=== PATIENT | female | born 1980 | race Caucasian/White ===

== ENCOUNTER 2017-10-27 12:44 | Emergency (ER) | END 2017-10-27 15:49 | disposition home or self-care (01) ==

== ENCOUNTER 2018-02-22 12:59 | Outpatient (CLI) | END 2018-02-22 17:02 | disposition home or self-care (01) ==

== ENCOUNTER 2018-02-23 16:06 | Outpatient (CLI) | END 2018-02-23 18:50 | disposition home or self-care (01) ==

== ENCOUNTER 2018-03-13 19:45 | Inpatient (IN) | END 2018-04-11 14:29 | disposition home or self-care (01) | DRG 832 ==

== ENCOUNTER 2018-04-13 14:25 | Outpatient (CLI) | END 2018-04-13 16:30 | disposition home or self-care (01) ==

== ENCOUNTER 2018-04-19 10:19 | Outpatient (CLI) | END 2018-04-19 12:12 | disposition home or self-care (01) ==

== ENCOUNTER 2018-04-29 16:35 | Outpatient (CLI) | END 2018-04-29 18:35 | disposition home or self-care (01) ==

== ENCOUNTER 2018-05-04 16:25 | Outpatient (CLI) | END 2018-05-04 18:07 | disposition home or self-care (01) ==

== ENCOUNTER 2018-05-20 16:28 | Inpatient (IN) | payer OTHER ==
[~2018-05-20] VITALS: Ht 175.3 cm; Wt 77.6 kg
[~2018-05-20 16:28] MED LIST: LABE100T7 PO; PROG200C15 VAG; SERT25TA PO
[2018-05-20 18:18] VITALS: BP 117/79; PULSE 77; RESP 18
--- NOTE | 2018-05-20 20:42 | HP ---
Date/Time of Note Date/Time of Note DATE: 05/20/18 TIME: 20:31 OB - History Hx of Present Free Text/Dictation 38 years old female 1 para 0 with an EDC of 06/06/2018 at 37.4 weeks the patient had a history of chronic hypertension on lisinopril. She had an early care and she actually had been hospitalized before for hypertension, short cervix and possible IUGR early at 28 weeks of her . she had been kept in the hospital until 34 weeks she had at that time magnesium sulfate and steroids for prevention of premature labor. At this time she presents with mild superimposed preeclampsia no active labor and no changes in her cervical exam. Dr. Martinez had seen her today for evaluation and for BPP NST and she had advise her to be admitted for observation for PIH and induction of labor later on During her she has been managed on labetalol alone. She also has been on Zoloft 25 mg daily Chief Complaint: No headaches dizziness or epigastric pain Estimated Due Date: Jun 06, 2018 : 1 Care: Good Care Obstetrical Complications: Pre-eclampsia, Gestational Hypertension Past Family/Social History * Past Medical, Surgical, Family and Obstetric Histories reviewed from chart. Blood Type: B+ Rubella: immune RPR/VDRL: Negative GBS Status: Negative HBsAG: Negative OB Admission Exam Physical Exam HEENT: WNL Heart: Rhythm Normal Lungs: Clear, Equal Abdomen: WNL Extremities: Normal Reflexes: Normal Cervical Dilatation: 2cm Effacement: 25% Station: -2 Membranes: Intact Heart Rate: 120's Accelerations: Accelerations Present Decelerations: No Decelerations Varibility: Moderate Contractions on Admission: None ZOHAIB FRAZIER MD May 20, 2018 20:42
[2018-05-20] MEDS ORDERED: SERTRALINE 50 MG TAB PO SCH (21:00)
[2018-05-20] MEDS ORDERED: LABETALOL 100 MG TAB PO ONE (21:00)
[2018-05-20] MEDS: SERTRALINE 50 MG TAB PO SCH (22:30)
[2018-05-20] MEDS: FAMOTIDINE 20 MG TAB PO SCH (22:31)
[2018-05-21] MEDS ORDERED: LABETALOL 100 MG TAB PO SCH (09:00)
[2018-05-21] MEDS ORDERED: PRENATAL VITAMIN PO SCH (09:00)
[2018-05-21] MEDS: FAMOTIDINE 20 MG TAB PO SCH ×2 (09:04→21:35)
[2018-05-21] MEDS ORDERED: BUTORPHANOL 2 MG INJ IV PRN (10:30)
[2018-05-21] MEDS ORDERED: IBUPROFEN 600 MG TAB PO PRN (10:30)
[2018-05-21] MEDS ORDERED: MISOPROSTOL 200 MCG TAB PR PRN (10:30)
[2018-05-21] MEDS ORDERED: OXYTOCIN 30 UNITS/LR 500 ML IV PRN (10:30)
[2018-05-21] MEDS ORDERED: OXYTOCIN 30 UNITS/LR 500 ML IV SCH ×2 (10:30)
[2018-05-21] MEDS ORDERED: CARBOPROST 250 MCG INJ IM PRN (10:30)
[2018-05-21] MEDS ORDERED: METHYLERGONOVINE 0.2 MG INJ IM PRN (10:30)
[2018-05-21] MEDS ORDERED: AMPICILLIN 2 GM/NS (PMX) 100 ML IV ONE (10:30)
[2018-05-21] MEDS ORDERED: BUTORPHANOL 1 MG INJ IV PRN (10:30)
[2018-05-21] MEDS: LACTATED RINGER'S 1,000 ML IV SCH ×2 (12:20→19:56)
[2018-05-21] MEDS: MISOPROSTOL 50 MCG CAPSULE PO PRN ×3 (12:34→21:35)
[2018-05-21] MEDS ORDERED: AMPICILLIN 1 GM/NS (PMX) 50 ML IV SCH (14:30)
[2018-05-21] MEDS: SERTRALINE 50 MG TAB PO SCH (21:36)
[2018-05-22] MEDS: MISOPROSTOL 50 MCG CAPSULE PO PRN (02:35)
[2018-05-22] MEDS: LACTATED RINGER'S 1,000 ML IV SCH ×3 (04:09→13:54)
--- NOTE | 2018-05-22 04:54 | PREAC ---
Date/Time of Note Date/Time of Note DATE: 05/22/18 TIME: 04:53 Anesthesia Eval and Record Evaluation Time Pre-Procedure Interview DATE: 05/22/18 TIME: 04:53 Age 38 Sex female NPO: 8 hrs Preoperative diagnosis iup at 37 weeks Planned procedure labor epidural Past Medical History Past Medical History: None Surgery & Anesthesia Issues No known issue Meds Anticoagulation: No Beta Romy within 24 hr: No Reason Beta Romy not given: Pt. not on B-Romy Reported Medications Sertraline Hcl* (Zoloft*) 25 Mg Tablet, 25 MG PO DAILY, #30 TAB 03/13/18 Progesterone,Micronized* (Prometrium*) 200 Mg Capsule, 200 MG VAG HS, CAP 03/13/18 Labetalol Hcl* (Labetalol Hcl*) 100 Mg Tablet, 100 MG PO BID, TAB 02/22/18 Current Medications Prenat Multivit/ [place]/Iron/Folic Ac () 1 tab DAILY PO Last administered on 05/21/18at 09:04; Admin Dose 1 TAB; Start 05/21/18 at 09:00 Sertraline HCl (Zoloft) 25 mg HS PO Last administered on 05/21/18at 21:36; Admin Dose 25 MG; Start 05/20/18 at 21:00 Famotidine (Pepcid) 20 mg BID PO Last administered on 05/21/18at 21:35; Admin Dose 20 MG; Start 05/20/18 at 21:00 Lactated Ringer's 1,000 ml @ 125 mls/hr Q8H IV Last administered on 05/22/18at 04:09; Admin Dose 125 MLS/HR; Start 05/21/18 at 10:04 Butorphanol Tartrate (Stadol) 1 mg Q2H PRN IV PAIN; Start 05/21/18 at 10:30 Butorphanol Tartrate (Stadol) 2 mg Q2H PRN IV PAIN; Start 05/21/18 at 10:30 Oxytocin/Lactated Ringer's 500 ml @ 500 mls/hr ONCE POST IV ; Start 05/21/18 at 10:30 Oxytocin/Lactated Ringer's 500 ml @ 125 mls/hr POST IV ; Start 05/21/18 at 10:30 Ibuprofen (Motrin) 600 mg ONCE PRN PO PAIN LEVEL 1-5; Start 05/21/18 at 10:30 Oxytocin/Lactated Ringer's 500 ml @ 0 mls/hr ONCE PRN IV VAGINAL BLEEDING; Start 05/21/18 at 10:30 Methylergonovine Maleate (Methergine) 0.2 mg ONCE PRN IM VAGINAL BLEEDING; Start 05/21/18 at 10:30 Carboprost Tromethamine (Hemabate) 250 mcg ONCE PRN IM VAGINAL BLEEDING; Start 05/21/18 at 10:30 Misoprostol (Cytotec) 1,000 mcg ONCE PRN CO VAGINAL BLEEDING; Start 05/21/18 at 10:30 Misoprostol (Cytotec 50 Mcg Capsule) 50 mcg Q4 PRN PO LABOR INDUCTION Last administered on 05/22/18at 02:35; Admin Dose 50 MCG; Start 05/21/18 at 11:00 Labetalol HCl (Normodyne) 100 mg BID PO ; Start 05/22/18 at 09:00 Meds reviewed: Yes Allergies Coded Allergies: codeine (Verified Allergy, Intermediate, HIVES, 02/23/18) diphenhydramine (Verified Allergy, Intermediate, ANXIETY, 02/23/18) lisinopril (Verified Allergy, Unknown, Swollen face, 05/20/18) Allergies Reviewed: Yes Labs/Studies Labs Reviewed: Reviewed by anesthesiologist Result Diagram: 05/20/18202505/20/182025 test: Positive Pre-procedure Exam Last vitals Vital Signs Date Temp Pulse Resp B/P (MAP) Pulse Ox O2 O2 Flow FiO2 Time Delivery Rate 05/20/18 98.1 77 18 117/79 Room Air 18:18 (92) Airway: Adequate mouth opening, Adequate thyromental dist Mallampati: Mallampati I Teeth: Normal Lung: Normal Heart: Normal ASA Physical Status ASA physical status: 2 Emergency: None Planned Anesthetic Neuraxial: Epidural Planned Pain Management Parenteral pain med Pre-operative Attestations Prior to commencing anesthesia and surgery, the patient was re-evaluated, there was verification of: *The patient's identity *The results of appropriate recent lab work and preoperative vital signs *The above evaluation not changing prior to induction *Anesthetic plan, risk benefits, alternative and complications discussed with p atient/family; questions answered; patient/family understands, accepts and wishes to proceed. RILEY SOLARES May 22, 2018 04:54
[2018-05-22] MEDS ORDERED: FENTAnyl 2MCG/ML-ROPIV 0.2% 100 ML ONE (04:56)
[2018-05-22] MEDS ORDERED: ONDANSETRON 4 MG INJ IV PRN ×3 (05:00→20:00)
[2018-05-22] MEDS ORDERED: FENTAnyl 2MCG/ML-ROPIV 0.2% 100 ML BAG EPI SCH (05:00)
[2018-05-22] MEDS ORDERED: NALOXONE (0.4 MG/ML) INJ IV PRN ×2 (05:00→20:00)
[2018-05-22] MEDS ORDERED: morphine SULFATE/PF (10 MG/10 ML) INJ ONE (07:00)
[2018-05-22] MEDS ORDERED: LABETALOL 100 MG TAB PO SCH (09:00)
[2018-05-22] MEDS ORDERED: OXYTOCIN 30 UNITS/LR 500 ML IV SCH (11:00)
[2018-05-22] MEDS ORDERED: LACTATED RINGER'S 500 ML IV SCH (13:39)
[2018-05-22] MEDS ORDERED: CEFAZOLIN 2 GM/50 ML (PMX) 50 ML IVPB SCH (14:00)
[2018-05-22] MEDS ORDERED: OXYTOCIN 30 UNITS/LR 500 ML IV PRN ×2 (14:00→14:30)
[2018-05-22] MEDS ORDERED: MISOPROSTOL 200 MCG TAB PR PRN ×2 (14:00→14:30)
[2018-05-22] MEDS ORDERED: CARBOPROST 250 MCG INJ IM PRN ×2 (14:00→14:30)
[2018-05-22] MEDS ORDERED: METHYLERGONOVINE 0.2 MG INJ IM PRN ×2 (14:00→14:30)
[2018-05-22] MEDS ORDERED: LACTATED RINGER'S 1,000 ML IV SCH (14:12)
--- NOTE | 2018-05-22 14:23 | QN ---
Documentation Comment The patient has been induced for chronic hypertension and superimposed PIH. She has been having contractions every 2-3 minutes on Cytotec and she had reached 1 cm dilation 80% effacement -2 station cephalic presentation. She started having nonreassuring heart tones with poor djzw-pc-njch variability and prolonged variable decelerations for which a section was proposed Patient was explained about the procedure the alternatives and options and she agreed to go ahead with the procedure with full understanding and no more questions ZOHAIB FRAZIER MD May 22, 2018 14:23
[2018-05-22] MEDS ORDERED: NA PHOSPHATE/BIPHOS 133 ML ENEMA PR PRN (14:30)
[2018-05-22] MEDS ORDERED: hydrOXYzine HCL 25 MG TAB PO ONE (14:30)
[2018-05-22] MEDS ORDERED: LANOLIN HPA 1 PKT TOP PRN (14:30)
[2018-05-22] MEDS ORDERED: METHYLERGONOVINE 0.2 MG TAB PO PRN (14:30)
[2018-05-22] MEDS ORDERED: CHLOROPROCAINE 3% (MPF) 20 ML INJ ONE (15:27)
--- NOTE | 2018-05-22 15:31 | SIPON ---
Date/Time of Note Date/Time of Note DATE: 05/22/18 TIME: 15:27 Operative Report Preoperative Diagnosis 37.6 weeks Chronic hypertension PIH Nonreassuring heart tones with variable decelerations Postoperative Diagnosis Same Operation/Procedure Performed Primary low segment transverse section Surgeon see signature line contact center assistant DR Nhan Lee Anesthesia: spinal Estimated blood loss: other Transfusion Required none Specimen Placenta Grafts/Implants none Complications none ZOHAIB FRAZIER MD May 22, 2018 15:31
--- NOTE | 2018-05-22 15:41 | PREOPHP ---
DATE OF ADMISSION: 05/20/2018 HISTORY OF PRESENT ILLNESS: This is a 38-year-old female, 1, para 0 with an EDC of 9. The patient is a 37.4 weeks of with a history of chronic hypertension on lisinopril the n [facility]. The patient was admitted in the [facility] at 27 weeks of due to a short cervix and she was kept in the hospital until about 34 week s. At this time, she is 37 weeks and 4 days and by the advice of the perinatologist, we admitted her for induction of labor due to chronic hypertension with superimposed -induced hypertension. The patient had also been on Zoloft due to some depression and at this time, she was induced and di latation was reached to 1 cm, 80% effaced,-2 station with membranes intact, but variable deceleration s that were prolonged were showing up with 40 xzak-ta-vhgj variability, for which a primary section was advised. PAST MEDICAL HISTORY: Chronic hypertension. Otherwise, she had healthy past history with no surgeri es and no history of medical antecedents except for the hypertension. FAMILY HISTORY: Also noncontributory except for hypertension. PHYSICAL EXAMINATION: VITAL SIGNS: Stable with blood pressure of 125/85, pulse is 80, respirations 16. HEAD AND NECK: Normal. CHEST: Clear. HEART: Normal sinus rhythm. LUNGS: Clear. BREASTS: Soft, nontender. No masses. ABDOMEN: Soft, nontender. No masses. Uterus with intermittent contractions. PELVIC: With 1 to 2 cm, 80% effacement, -2 station, membranes intact. EXTREMITIES: Normal with normal pulses with 2 to 3+ reflexes. No edema. NEUROLOGIC: The patient has no headaches or dizziness. At this time, she is being advised for a primary section due to nonreassuring heart to hortencia, with variable decelerations and poor xkxo-wz-byyi variability and -induced hypertension . She has been advised of the possible risks and possible complications of the procedure with her al ternatives and options. Written information was provided. She had no more questions and agreed to h ave the section at this time with full understanding of what is happening. Dictated By: ZOHAIB ALVA/WAYNE Conf#: [id number] [facility]#: [id number]
[2018-05-22] MEDS ORDERED: ACETAMINOPHEN 500 MG TAB PO PRN (16:00)
[2018-05-22] MEDS ORDERED: FENTAnyl 50 MCG/ML VIAL ONE ×3 (16:05→16:23)
--- NOTE | 2018-05-22 16:53 | PAC ---
Date/Time of Note Date/Time of Note DATE: 05/22/18 TIME: 16:52 Post-Anesthesia Notes Post-Anesthesia Note Last documented vital signs Vital Signs Date Temp Pulse Resp B/P (MAP) Pulse Ox O2 O2 Flow FiO2 Time Delivery Rate 05/20/18 98.1 77 18 117/79 Room Air 18:18 (92) Activity: WNL Respiratory function: WNL Cardiovascular function: WNL Mental status: Baseline Pain reasonably controlled: Yes Hydration appropriate: Yes Nausea/Vomiting absent: Yes JARRED CA May 22, 2018 16:52
[2018-05-22] MEDS: KETOROLAC 30 MG INJ IV SCH ×2 (17:08→23:54)
--- NOTE | 2018-05-22 17:12 | OPR ---
DATE OF OPERATION: 05/22/2018 PROCEDURE: Primary low segment transverse section. PREOPERATIVE DIAGNOSES: 37.6 weeks , chronic hypertension, -induced hypertension, nonreassuring heart tones and variable decelerations. POSTOPERATIVE DIAGNOSIS: 37.6 weeks , chronic hypertension, -induced hypertension, nonreassuring heart tones and variable decelerations, fibroid uterus. SURGEON: Zohaib Shultz MD CORN HUSK BALER: Dr. Lee ANESTHESIOLOGIST: Dr. Morrison ANESTHESIA: Spinal. COMPLICATIONS: None. PROCEDURE: The patient was given a spinal anesthesia, then placed in the supine position. The abdom en was prepped and draped and a Lindo catheter was placed in the bladder. Once the abdomen had been prepped, a small incision about 2 cm at the pubic bone was made of about 10 cm in length. The abdomi nal cavity was reached. The James retractor was placed and the bladder flap was made. The uterus w as opened in the midline with a scalpel and the incision was increased laterally on either side for a bout 3 inches. The uterus was checked with fibroids. The incision was carried to either side for ab out 3 inches. The baby's head was delivered followed by the body. It was a baby girl, 9. The cord blood was obtained after the cord was clamped and the baby was handed over to the courtesy driver team. The placenta was removed. The uterus was swabbed out and closed in 2 layers using 0 PDS loo ped suture, imbedding the first line of suture. Hemostasis was good. The tubes and ovaries were nor mal. The uterus had tiny fibroids. The abdominal cavity was cleaned out and the peritoneum was clos ed with a 2-0 Vicryl suture, #0 PDS looped suture for the fascia, 2-0 Vicryl for subcutaneous tissue, 3-0 Monocryl subcuticular to the skin. Steri-Strips after Dermabond. The patient tolerated the pro cedure well and left the OR awake and stable. Sponge counts, instrument counts were correct and intr avenous antibiotics were given for prophylaxis. Dictated By: ZHOAIB ALVA/NTS Conf#: [id number] DID#: [id number]
[2018-05-22] MEDS: OXYTOCIN 30 UNITS/LR 500 ML IV SCH ×2 (18:45→23:58)
[2018-05-22 20:00] VITALS: BP 148/94; PULSE 69; RESP 18
[2018-05-22] MEDS ORDERED: METOCLOPRAMIDE 10 MG INJ IV PRN (20:00)
[2018-05-22] MEDS ORDERED: HYDROmorphONE 1 MG/5 ML IV SYRINGE IV PRN ×3 (20:00)
[2018-05-22] MEDS ORDERED: DIPHENHYDRAMINE 50 MG INJ IV PRN (20:00)
[2018-05-22] MEDS ORDERED: HYDROmorphONE 0.5 MG/0.5 ML SYG IV PRN (20:00)
[2018-05-22] MEDS ORDERED: KETOROLAC 30 MG INJ IV PRN ×2 (20:00)
[2018-05-22] MEDS ORDERED: FENTAnyl 50 MCG/ML VIAL IV PRN ×2 (20:00)
[2018-05-22] MEDS: LABETALOL 100 MG TAB PO SCH ×2 (21:00→22:09)
[2018-05-22] MEDS ORDERED: IBUPROFEN 800 MG TAB PO SCH (22:00)
[2018-05-22] MEDS: SENNA/DOCUSATE NA (8.6MG/50MG) TAB PO SCH (22:10)
[2018-05-22] MEDS: CEFAZOLIN 2 GM/50 ML (PMX) 50 ML IVPB SCH ×2 (23:24→23:54)
[2018-05-23 04:03] VITALS: BP 125/95; PULSE 71; RESP 20
[2018-05-23] MEDS: KETOROLAC 30 MG INJ IV SCH ×4 (06:20→22:00)
[2018-05-23 08:00] VITALS: BP 125/76; PULSE 82; RESP 17
[2018-05-23] MEDS: CEFAZOLIN 2 GM/50 ML (PMX) 50 ML IVPB SCH ×2 (08:37→15:18)
[2018-05-23] MEDS: LABETALOL 100 MG TAB PO SCH ×3 (08:37→21:35)
[2018-05-23] MEDS: SENNA/DOCUSATE NA (8.6MG/50MG) TAB PO SCH ×2 (08:38→21:35)
[2018-05-23] MEDS: HYDROmorphONE 0.5 MG/0.5 ML SYG IV PRN ×2 (08:47→15:59)
[2018-05-23] MEDS ORDERED: SERTRALINE 50 MG TAB PO SCH ×2 (09:00)
[2018-05-23 12:00] VITALS: BP 124/74; PULSE 79; RESP 16
--- NOTE | 2018-05-23 12:41 | QN ---
Documentation Comment POD#1 is stable No VB +Flatus +voids VS stable Gen NAD Abd soft NT ND Incision is intact Genitalia No blood at perineum --->Ambulation SOFÍA LERMA M.D. May 23, 2018 12:41
[2018-05-23] MEDS ORDERED: ACETAMINOPHEN 500 MG TAB PO PRN (13:00)
[2018-05-23] MEDS: LACTATED RINGER'S 1,000 ML IV SCH ×2 (13:24→21:20)
[2018-05-23] MEDS ORDERED: hydrOXYzine HCL 25 MG TAB PO PRN (13:30)
[2018-05-23] MEDS ORDERED: traMADol 50 MG TAB PO PRN (13:30)
[2018-05-23] MEDS ORDERED: oxyCODONE 15 MG TAB PO PRN (15:00)
[2018-05-23] MEDS ORDERED: BISACODYL (EC) 5 MG TAB PO ONE (15:00)
[2018-05-23] MEDS ORDERED: oxyCODONE (CR) 15 MG TAB [oxyCONTIN] PO SCH (15:00)
[2018-05-23 15:30] VITALS: BP 128/64; PULSE 73; RESP 17
[2018-05-23] MEDS: IBUPROFEN 800 MG TAB PO SCH ×2 (17:07→22:15)
[2018-05-23 19:40] VITALS: BP 127/78; PULSE 75; RESP 18
[2018-05-23] MEDS: SERTRALINE 50 MG TAB PO SCH (21:44)
[2018-05-24] VITALS: BP 132/74; PULSE 66; RESP 18
[2018-05-24] MEDS ORDERED: IBUPROFEN 800 MG TAB PO SCH (04:00)
[2018-05-24 04:40] VITALS: BP 134/69; PULSE 61; RESP 16
[2018-05-24] MEDS: LACTATED RINGER'S 1,000 ML IV SCH (05:40)
--- NOTE | 2018-05-24 08:53 | CONS ---
Date/Time of Note Date/Time of Note DATE: 05/24/18 TIME: 08:52 Assessment/Plan Assessment/Plan Result Diagram: 05/23/18 0618 05/20/182025 Consultation Date/Type/Reason Admit Date/Time May 20, 2018 at 17:36 Initial Consult Date 05/23/18 Type of Consult Anesthesiology Reason for Consultation follow up 24 HR Interval Summary Free Text/Dictation Pt seen and examined at bedside on 05/23/18 was POD#1 s/p c/s. Pt received duramorph for post-op pain control. She had no n/v/numbness in extremities. Exam/Review of Systems Vital Signs Vitals Vital Signs Date Temp Pulse Resp B/P (MAP) Pulse Ox O2 O2 Flow FiO2 Time Delivery Rate 05/24/18 98.5 61 16 134/69 Room Air 04:40 (90) 05/23/18 96 15:30 Intake and Output 05/23/18 05/23/18 05/24/18 1515:00 23:00 07:00 IntakeIntake Total 545 ml 595 ml 200 ml OutputOutput Total 1000 ml 1600 ml 800 ml BalanceBalance -455 ml -1005 ml -600 ml Medications Medications Current Medications Methylergonovine Maleate (Methergine) 0.2 mg Q6H PRN PO VAGINAL BLEEDING; Start 05/22/18 at 14:30 Simethicone (Mylicon) 160 mg Q8H PRN PO DISTENSION/GAS/BLOATING Last administered on 05/23/18at 22:19; Admin Dose 160 MG; Start 05/22/18 at 14:30 Senna/Docusate Sodium (Senokot-S) 1 tab BID PO Last administered on 05/23/18at 21:35; Admin Dose 1 TAB; Start 05/22/18 at 21:00 Sodium Biphosphate/ Sodium Phosphate (Fleet Enema) 133 ml DAILY PRN CA CONSTIPATION; Start 05/22/18 at 14:30 Lanolin (Lanolin Hpa) 1 applic BEDSIDE MEDICATION PRN TOP BEDSIDE FOR KEYUR TO NIPPLES Last administered on 05/23/18at 15:18; Admin Dose 1 APPLIC; Start 05/22/18 at 14:30 Diphtheria/ Tetanus/Acell Pertussis (Adacel) 0.5 ml ONCE ONCE IM* ; Start 05/25/18 at 09:00; Stop 05/25/18 at 09:01 Measles/Mumps/ Rubella Vaccine Live (Mmr Ii Vaccine) 0.5 ml ONCE ONCE SC* ; Start 05/25/18 at 09:00; Stop 05/25/18 at 09:01 Oxytocin/Lactated Ringer's 500 ml @ 0 mls/hr ONCE PRN IV VAGINAL BLEEDING; Start 05/22/18 at 14:30 Methylergonovine Maleate (Methergine) 0.2 mg ONCE PRN IM VAGINAL BLEEDING; Start 05/22/18 at 14:30 Carboprost Tromethamine (Hemabate) 250 mcg ONCE PRN IM VAGINAL BLEEDING; Start 05/22/18 at 14:30 Misoprostol (Cytotec) 1,000 mcg ONCE PRN CA VAGINAL BLEEDING; Start 05/22/18 at 14:30 Labetalol HCl (Normodyne) 100 mg BID PO Last administered on 05/23/18at 21:35; Admin Dose 100 MG; Start 05/22/18 at 21:00 Hydromorphone HCl (Dilaudid) 0.2 mg PACU PRN IV MILD PAIN LEVEL 1-3; Start 05/22/18 at 20:00 Hydromorphone HCl (Dilaudid) 0.4 mg PACU PRN IV MODERATE PAIN LEVEL 4-6; Start 05/22/18 at 20:00 Hydromorphone HCl (Dilaudid) 0.6 mg PACU PRN IV SEVERE PAIN LEVEL 7-10; Start 05/22/18 at 20:00 Lactated Ringer's 1,000 ml @ 120 mls/hr Q8H20M IV Last administered on 05/23/18at 13:24; Admin Dose 120 MLS/HR; Start 05/23/18 at 13:00 Oxycodone HCl (Roxicodone) 15 mg TID PRN PO PAIN; Start 05/23/18 at 15:00 Ibuprofen (Motrin) 800 mg TID PO Last administered on 05/23/18at 22:15; Admin Dose 800 MG; Start 05/23/18 at 18:00 Acetaminophen (Tylenol Tab) 1,000 mg Q6H PRN PO MILD PAIN(1-3)OR ELEVATED TEMP Last administered on 05/23/18at 17:07; Admin Dose 1,000 MG; Start 05/23/18 at 13:00 Hydroxyzine HCl (Atarax) 50 mg Q8H PRN PO ITCHING; Start 05/23/18 at 13:30 Tramadol HCl (Ultram) 50 mg TID PRN PO PAIN; Start 05/23/18 at 13:30 Sertraline HCl (Zoloft) 25 mg QHS PO Last administered on 05/23/18at 21:44; Admin Dose 25 MG; Start 05/23/18 at 21:00 JARRED CA May 24, 2018 08:53
[2018-05-24 09:00] VITALS: BP 133/75; PULSE 73; RESP 17
[2018-05-24] MEDS: SENNA/DOCUSATE NA (8.6MG/50MG) TAB PO SCH ×2 (09:24→21:23)
[2018-05-24] MEDS: IBUPROFEN 800 MG TAB PO SCH ×3 (09:25→21:27)
[2018-05-24] MEDS: LABETALOL 100 MG TAB PO SCH ×2 (09:26→21:23)
--- NOTE | 2018-05-24 09:46 | PN ---
Date/Time of Note Date/Time of Note DATE: 05/24/18 TIME: 09:37 Assessment/Plan Lines/Catheters IV Catheter Type (from Nrsg): Peripheral IV Subjective 24 Hr Interval Summary Afebrile, feels good. Tolerating diet passing gases Ambulatory With no complaints Pain is controlledds Constitutional: no complaints Feeding: advancing diet Pain Control: mild Detailed Summary Eyes: no complaints ENT: no complaints Respiratory: no complaints Cardiovascular: no complaints Gastrointestinal: no complaints Genitourinary: no complaints Musculoskeletal: no complaints Skin: no complaints Neurologic: no complaints Endocrine: no complaints Lymphatic: no complaints Psychological: no complaints, nl mood/affect Immunologic: no complaints Exam/Review of Systems Vital Signs Vitals Vital Signs Date Temp Pulse Resp B/P (MAP) Pulse Ox O2 O2 Flow FiO2 Time Delivery Rate 05/24/18 98.5 61 16 134/69 Room Air 04:40 (90) 05/23/18 96 15:30 Intake and Output 05/23/18 05/23/18 05/24/18 1515:00 23:00 07:00 IntakeIntake Total 545 ml 595 ml 200 ml OutputOutput Total 1000 ml 1600 ml 800 ml BalanceBalance -455 ml -1005 ml -600 ml Exam Constitutional: alert, oriented, well developed Psych: no complaints, nl mood/affect Head: normocephalic, atraumatic Eyes: nl conjunctiva, EOMI, nl lids, nl sclera ENMT: nl external ears & nose, nl lips & teeth, nl nasal mucosa & septum, mucosa pink and moist Neck: supple, non-tender Respiratory: clear to auscultation, normal air movement Cardiovascular: regular rate and rhythm, nl pulses Gastrointestinal: soft, nl liver, spleen, non-tender Musculoskeletal: nl extremities to inspection, nl gait and stance Extremities: normal pulses Neurological: EQUIPMENT SCHEDULER II-XII intact, nl mental status, nl speech, nl strength Skin: nl turgor, rash or lesions Lymph: nl lymph nodes Results Result Diagram: 05/23/1861705/20/182025 ZOHAIB FRAZIER MD May 24, 2018 09:46
--- NOTE | 2018-05-24 09:50 | NSTRPT ---
NST Information Datetime Report Generated by CPN: 05/24/2018 09:50 Datetime: 05/20/2018 14:27 NST Information EGA: 37.4 Test Number: 2 Time on Monitor: 05/20/2018 14:57 Time off Monitor: 05/20/2018 15:37 NST Duration (Min): 40 Reason for NST: Chronic Hypertension Test and Monitor Explained: Monitor Explained; Test Explained; Verbalized Understanding Pulse: 77 Resp: 18 SBP: 117 DBP: 76 Test Evaluation NST Interventions: Reposition Patient Patient States Movement: Present Contraction Frequency: none FHR Baseline : 140 Variability: Moderate 6-25bpm Accelerations: 15X15 Decelerations: None FHR Category: Category I NST Results: Reactive Comments: To u/s. KARLA 18.9cm. cephalic. BPP 12/15. Dr. Greenberg recommends delivery. Spoke to Dr. Shultz. Patient [facility]. Electronically Signed By E-Signature: with User ID: [id number], Addendum/Amendment: Heart rate pattern category 1. Datetime: 05/17/2018 14:32 NST Information EGA: 37.1 NST Duration (Min): 33
[2018-05-24] MEDS ORDERED: BISACODYL (EC) 5 MG TAB PO ONE (10:00)
[2018-05-24 15:30] VITALS: BP 142/91; PULSE 84; RESP 18
[2018-05-24 19:45] VITALS: BP 135/80; PULSE 74; RESP 18
[2018-05-24] MEDS: SERTRALINE 50 MG TAB PO SCH (21:24)
[2018-05-25 05:00] VITALS: BP 135/85; PULSE 84; RESP 16
[2018-05-25] MEDS: IBUPROFEN 800 MG TAB PO SCH ×2 (06:00→12:56)
[2018-05-25 08:05] VITALS: BP 129/85; PULSE 78; RESP 18
[2018-05-25] MEDS ORDERED: DIPHTH/TET/ACEL PERTUSS (ADULT) 0.5 ML VIAL IM* ONE (09:00)
[2018-05-25] MEDS ORDERED: MEASLES,MUMPS,RUBELLA VACCINE INJ SC* ONE (09:00)
[2018-05-25] MEDS: SENNA/DOCUSATE NA (8.6MG/50MG) TAB PO SCH (09:40)
[2018-05-25] MEDS: LABETALOL 100 MG TAB PO SCH (09:42)
--- NOTE | 2018-05-25 09:44 | PD.PPDC ---
MANAGER HAIR Discharge Instruction Condition [id number] Patient Condition: Qpjbc0a Good Diet Xiymy3Wm Diet: Xkrnj7j Resume Regular Diet Activity/Restrictions [id number] Activity: Hdxhw3j Normal Activity May Shower Qyrlv0Qd Restrictions: Skdqy3f No Exercising No Lifting No Driving No Sexual Activity Nothing in the Vagina No [place] No Tampons, douche Wound/Drain Care Instructions [id number] Wound/Drain Care Instructions: Qmpge6g Wash with soap and water Keep clean and dry Follow-up Follow-up with Physician: 1, Week/Weeks Return to clinic for Aoyim0Gv [employer]ER Instructions: Fwfjw0x Fever greater than 101 Chills Worsening abdominal pain Excessive Vaginal Bleeding More than 2 pads per hour Unable to tolerate diet [id number] OB Instructions: Sidcq1m Breast Tenderness Depression Blurried Vision Headache [id number] Surgical Instructions: Bksly5j Incisional Drainage Incisional Redness ZOHAIB FRAZIER MD May 25, 2018 09:44
--- NOTE | 2018-05-25 09:49 | DS ---
Date/Time of Note Date/Time of Note DATE: 05/25/18 TIME: 09:45 Obstetrical Discharge Record Final Diagnosis Final Diagnosis: Term delivered Section Section: Primary Condition on Discharge Physical Assessment Voiding: Yes Bowel Movement: Yes Breast: Soft, non-tender, Filling Fundus: Firm Abdomen and Incision: Patient came for induction of labor due to chronic hypertension with superimposed PIH. She did not progress on her labor and started having variable decelerations for which a section was performed Section recovery was excellent She was ambulatory tolerating diet passing gases with bowel movement with a clean incision and with pain controlled with p.o. medications She was slightly anemic but asymptomatic. She was ambulatory able to perform her regular activities breast-feeding and stable. Her blood pressure was controlled with labetalol 100 mg twice daily and she was sent home with instructions of what to do and not to and see me if she has an emergency and to see me in a week anyways Calf Tenderness: No Patient Condition: Good ZOHAIB FRAZIER MD May 25, 2018 09:49
== END 2018-05-25 15:15 | disposition home or self-care (01) | DRG 788 ==
LOC: L-D 17:36 → PP1 05-22 20:00 → EDSTATUS 06-06 16:23
PROVIDERS: ADMIT Obstetrics & Gynecology; ATTEND Obstetrics & Gynecology
PROC: 10D00Z1 Extraction of Products of Conception, Low, Open Approach (ICD-10-PCS; principal; 2018-05-22 16:30)
DX: O14.04 Mild to moderate pre-eclampsia, complicating childbirth (principal); O10.02 Pre-existing essential hypertension complicating childbirth; O76 Abnormality in fetal heart rate and rhythm complicating labor and delivery; O34.13 Maternal care for benign tumor of corpus uteri, third trimester; D25.9 Leiomyoma of uterus, unspecified; Z37.0 Single live birth; Z3A.37 37 weeks gestation of pregnancy
CPT/HCPCS: 62319; 76815; 80053; 81003; 82575; 84156; 84560; 85025; 85384; 85610; 85730; 86592; 86850; 86900; 86901; 87340; J2400; J0690; J1170; J1885; J2274; J2590; J3010; J7120